=== PATIENT | male | born 1975 | race Caucasian/White ===

== ENCOUNTER 2024-12-03 05:04 | Emergency (ER) | payer MEDICAID, SELFPAY ==
[2024-12-03 05:05] VITALS: BMI 36.6
--- NOTE | 2024-12-03 05:07 | EKG_ITS ---
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
[2024-12-03 05:12] VITALS: BP 157/84; PULSE 86; RESP 16; TEMP 36.6; O2SAT 97
--- NOTE | 2024-12-03 05:13 | XR_ITS ---
Examination: PA chest single view TECHNIQUE: Upright PA chest single view Date and time: December 03, 2024, 0519 hours INDICATIONS: Chest pain today. FINDINGS: Normal heart size. Lungs are clear. The osseous structures are intact. IMPRESSION: No active disease.
--- NOTE | 2024-12-03 05:14 | PD.EDRME ---
Rapid Medical Screening Exam RME Arrival date/time: 12/03/24 05:04 This is a case of 41-year-old male with history of palpitation came in in the emergency room today for chest pain and palpitation which started today associated with mild shortness of breath persistence of the symptoms this patient decided to start consult here in the emergency room Chief Complaint: Chest Pain Time Seen by Provider: 12/03/24 05:06 Vital signs: Vital Signs Temperature 97.9 F 12/03/24 05:12 Pulse Rate 86 12/03/24 05:12 Respiratory Rate 16 12/03/24 05:12 Blood Pressure 157/84 H 12/03/24 05:12 Pulse Oximetry (%) 97 12/03/24 05:12 Oxygen Delivery Method Room Air 12/03/24 05:12
[2024-12-03 05:56] LABS: Basophils # (Auto) 0.0 Thou/mm3 (0.0-0.2); Basophils % (Auto) 1 % (0-2.5); Eosinophils # (Auto) 0.2 Thou/mm3 (0.0-0.5); Eosinophils % (Auto) 3 % (0-10); Hematocrit 49.0 % (41.0-53.0); Hemoglobin 17.1 g/dL (13.5-16.0); Immature Granulocytes Auto 0.02 Thou/mm3 (0.00-0.00); Lymphocytes # (Auto) 1.3 Thou/mm3 (1.0-4.8); Lymphocytes % (Auto) 21 % (10-50); Mean Corpuscular HGB Conc 34.9 g/dl (31.0-37.0); Mean Corpuscular Hemoglobin 28.4 pg (25.0-35.0); Mean Corpuscular Volume 81 fL (80-100); Monocytes # (Auto) 0.5 Thou/mm3 (0.0-0.8); Monocytes % (Auto) 8 % (0-12); Neutrophils # (Auto) 4.2 Thou/mm3 (1.8-7.7); Neutrophils % (Auto) 67 % (37-80); Nucleated Red Blood Cell # 0.00 Thou/mm3 (0.00-0.00); Nucleated Red Blood Cell % 0 /100 WBC (0); Platelet Count 210 Thou/mm3 (140-440); RDW Standard Deviation 38.5 fL (35.1-43.9); Red Blood Count 6.02 Miln/mm3 (4.50-5.90); White Blood Count 6.3 Thou/mm3 (3.8-10.6)
[2024-12-03 06:14] LABS: B-Type Natriuretic Peptide 37 pg/mL (0-100)
[2024-12-03 06:17] LABS: Alanine Aminotransferase 36 U/L (10-49); Albumin, Serum 4.2 gm/dL (3.5-5.0); Albumin/Globulin Ratio 1.8 (1.2-2.2); Alkaline Phosphatase 67 U/L (46-116); Anion Gap 9 (7-16); Aspartate Amino Transferase 17 U/L (0-34); BUN/Creatinine Ratio 9 Ratio (12-20); Bilirubin,Total 1.0 mg/dL (0.3-1.2); Blood Urea Nitrogen 10 mg/dL (9-23); Calcium 9.7 mg/dL (8.3-10.6); Calcium (Corrected) 9.7 mg/dL (8.5-10.1); Carbon Dioxide 27.7 mMol/L (20.0-31.0); Chloride 104 mMol/L (98-107); Creatinine (Component) 1.1 mg/dL (0.6-1.3); Estimated Creatinine Clearance 88.3 mL/min (>60); Globulin 2.4 gm/dL (2.3-3.5); Glucose 103 mg/dL (74-106); Osmolality,Calculated 280 (275-295); Potassium 3.7 mMol/L (3.4-5.1); Sodium 141 mMol/L (136-145); Thyroid Stimulating Hormone 2.76 uIU/mL (0.55-4.78); Total Protein 6.6 gm/dL (5.7-8.2); Troponin I < 0.020 ng/mL (0.0-0.045); eGFR > 60 See Note
--- NOTE | 2024-12-03 06:32 | PD.EDADULT ---
ED General RME/HPI General Chief complaint: Chest Pain Stated complaint: CHEST PAIN Time Seen by Provider: 12/03/24 05:06 Arrival date/time: 12/03/24 05:04 RME / HPI RME / HPI narrative: 12/03/24 05:04 This is a case of 41-year-old male with history of palpitation came in in the emergency room today for chest pain and palpitation which started today associated with mild shortness of breath persistence of the symptoms this patient decided to start consult here in the emergency room Related Data Previous Rx's ?Medication ?Instructions ?Recorded docusate sodium 100 mg capsule 100 mg PO BID #40 caps 08/08/20 (Colace) hydrocodone 5 mg-acetaminophen 325 1 tab PO Q6H PRN pain (scale score 08/08/20 mg tablet 7-10) #20 tabs ibuprofen 600 mg tablet 600 mg PO Q8H PRN pain (scale 08/08/20 score 4-6) #15 tabs Allergies Allergy/AdvReac Type Severity Reaction Status Date / Time No Known Allergies Allergy Verified 12/03/24 06:55 Review of Systems Review of Systems Systems Reviewed: All systems reviewed, normal except as documented ED Exam Narrative Physical exam: Physical Exam GENERAL: NAD, AAOx3 HEENT: Moist mucosa. Eyes open, symmetrical, & clear CARDIO: Heart RRR, no obvious murmurs PULM: No noted coughing/dyspnea CTA B/L, no R/W/R GI: Abdomen soft, nondistended, no pain on palpation. BSx4 SKIN/MSK/EXT: No wounds/rashes/edema/amputations, no pain on palpation. Pedal pulses present B/L NEURO: AAOx3, no focal neuro deficits, able to move all 4 extremities Course Course Course Narrative: see MDM Quality Measures none Orders Category Date Time Status Community Resource Officer Q4H START 00 Care 12/03/24 06:38 Active EKG (ED ONLY) *Do not use* NOW Care 12/03/24 05:07 Completed EKG (ED Only) Stat Exams 12/03/24 05:07 Draft XR chest 1V portable Stat Exams 12/03/24 05:13 Taken BNP [B-Type Natriuretic Peptide] Stat Lab 12/03/24 05:44 Completed CBC Stat Lab 12/03/24 05:44 Completed CMP [Comprehensive Metabolic Panel] Stat Lab 12/03/24 05:44 Completed Magnesium Stat Lab 12/03/24 05:44 Completed TSH [Thyroid Stimulating Hormone] Stat Lab 12/03/24 05:44 Completed Troponin I Stat Lab 12/03/24 05:44 Completed Magnesium Sulfate 4 GM Ivpb [Magnesium Sulfate Ivpb] Med 12/03/24 07:21 Active 4 gm in 50 ml IV X1 Potassium Chloride [K-Dur] Med 12/03/24 07:20 Discontinued 40 meq PO X1 ONE Vital Signs Vital signs: Vital Signs Temperature 97.9 F 12/03/24 05:12 Pulse Rate 86 12/03/24 05:12 Respiratory Rate 16 12/03/24 05:12 Blood Pressure 157/84 H 12/03/24 05:12 Pulse Oximetry (%) 97 12/03/24 05:12 Oxygen Delivery Method Room Air 12/03/24 05:12 Discharge Plan Plan Patient Disposition: Left Against Medical Advice Prescriptions/Referrals Prescriptions/Med Rec: No Action hydrocodone-acetaminophen 5-325 mg tablet 1 tab PO Q6H MDD 4 PRN (Reason: pain (scale score 7-10)) Qty: 20 0RF docusate sodium [Colace] 100 mg capsule 100 mg PO BID Qty: 40 0RF ibuprofen 600 mg tablet 600 mg PO Q8H PRN (Reason: pain (scale score 4-6)) Qty: 15 0RF Referrals: No Primary/Family,Physician [Primary Care Provider] - In 1 week Problem List Clinical Impression: Atrial fibrillation, Palpitations Patient/Caregiver Discharge Instructions Print Language: Hungarian MDM Narrative [facility] hospital course: 49 y/o M with no PMHx who presented to the ED due to palpitations. Patient states he woke up in the middle of the night with palpitations that were so bad he felt short of breath. He does endorse that this has happened to him before the palpitations the shortness of breath is new and is why he decided to come to the ED. He also endorses some right sided chest pain associated with the palpitations. He denies any previous cardiac history or medical history as he is too broke to go see doctors. He denies fever, chills, nausea, vomiting, sick contacts, recent travel, alcohol or drug use. 0644: Labs reviewed CBC unremarkable, CMP unremarkable, troponins negative, TSH nl, EKG reviewed shows atrial fibrillation rate controlled ~90's 0810: Patient decided to leave AMA as he wants to go to work. The patient has decided to sign out against medical advice (AMA) after being explained the risks & benefits of leaving before medical clearance/discharge. The patient had the opportunity to ask questions about their condition which were answered to their satisfaction; the patient is aware that they may return for further care at any time as needed. Clinical Information Provided by patient Medical Records Reviewed [facility] Medication Administration(s) Medication Administration History Magnesium Sulfate (Magnesium Sulfate Ivpb) 4 gm in 50 mls @ 12.5 mls/hr IV X1 ONE Stop: 12/03/24 11:20 Last Admin: 12/03/24 08:05 Dose: Not Given Documented By: SHASHI Non-Admin Reason: Patient Refused Discontinued Medications Potassium Chloride (Potassium Chloride 20 Meq Tabcr) 40 meq PO X1 ONE Stop: 12/03/24 07:21 Last Admin: 12/03/24 08:08 Dose: 40 meq Documented By: SHASHI
[2024-12-03 06:41] VITALS: BP 112/81; PULSE 90; RESP 16; TEMP 37; O2SAT 97
[2024-12-03 07:05] LABS: Magnesium 1.6 mg/dL (1.6-2.6)
--- NOTE | 2024-12-03 08:14 | PC.NURSE ---
WENT TO MEDICATE PT, PT STATES I DON'T HAVE TIME FOR THAT, I HAVE TO BE AT WORK AT 9AM. PROVIDER NOTIFIED PT REQUEST TO LEAVE AMA. PT GIVEN PO MED, REFUSED IV. AMA FORM SIGNED.
[2024-12-03 08:15] VITALS: BP 127/89; PULSE 67; RESP 18; TEMP 36.6; O2SAT 96
== END 2024-12-03 08:17 | disposition left against medical advice (07) ==
PROVIDERS: Nurse Practitioner Family; Emergency Provider Student in an Organized Health Care Education/Training Program
DX: I48.91 Unspecified atrial fibrillation (principal); R00.2 Palpitations; R94.31 Abnormal electrocardiogram [ECG] [EKG]
CPT/HCPCS: 36415; 71045; 80053; 83735; 83880; 84443; 84484; 85025; 93005; 99283; A9270